=== PATIENT | female | born 1940 | race Caucasian/White ===

== ENCOUNTER → 2019-07-07 | Outpatient (CLI) | payer MEDICARE ==
[~2019-07-07] MED LIST: HYDROmorphone 2 MG/ML VIAL IV PRN; IV RINGERS,LACTATED 1000ML 1,000 ML IV SCH; KETAMINE HCL IN NACL, ISO-OSM 50 MG/5 ML SYRINGE ONE; MIDAZOLAM HCL/PF 2 MG/2 ML VIAL. ONE; MORPHINE SULFATE 2 MG/ML VIAL. IV PRN; ONDANSETRON PF 4 MG/2 ML VIAL. IV PRN; PROCHLORPERAZINE 10 MG/2 ML VIAL. IV PRN; PROPOFOL 20 ML IV ONE; fentaNYL PF VIAL 100 MCG/2 ML VIAL IV PRN
[2019-07-07 14:21] VITALS: BP 170/77
--- NOTE | 2019-07-07 14:33 | RAD ---
EXAMINATION: Magnetic resonance imaging (MRI) of the cervical spine without contrast 07/07/2019 1:00 PM HISTORY: Cervical radiculopathy TECHNIQUE: Multiplanar multi-weighted MRI of the cervical spine was performed without intravenous contrast using the standard cervical spine protocol. Contrast information: None administered COMPARISON: None available FINDINGS: Evaluation degraded by motion artifact. Minimal anterolisthesis of C2 on C3. Minimal anterolisthesis of C3 on C4. Minimal retrolisthesis of C5 on C6. There is moderate disc height loss at C4-C5 with endplate irregularity and marginal osteophytosis compatible with degenerative disc changes. No acute fracture is identified; however, if trauma is suspected, a CT scan would be a more sensitive examination for fractures. The craniocervical junction is normal. The visualized portions of the skull base and the posterior fossa are normal. Evaluation of cervical spinal cord is limited by motion. No soft tissue abnormality is identified. Normal signal voids are present in the vertebral arteries. Motion artifact may accentuate the degree of stenosis. C2-C3: Disc is normal in configuration. There is mild facet arthropathy. No neuroforaminal or spinal canal stenosis. C3-C4: There is a posterior disc osteophyte complex. Mild facet and uncovertebral joint disease. Mild bilateral neuroforaminal stenosis. No significant spinal canal stenosis. C4-C5: There is a posterior disc osteophyte complex. Moderate facet and uncovertebral joint disease. Moderate to severe left and moderate right uncovertebral joint disease. Moderate spinal canal stenosis, exacerbated by ligamentum flavum infolding. There is subtle deformity of the ventral cord. No cord signal alteration. C5-C6: There is a posterior disc osteophyte complex with left foraminal disc protrusion. Mild facet and moderate uncovertebral joint disease, left greater than right. Mild to moderate bilateral neuroforaminal stenosis. Mild spinal canal stenosis without deformity of the cord or cord signal alteration. C6-C7: Mild disc bulge. No neuroforaminal or spinal canal stenosis. C7-T1: Disc is normal in configuration. No neuroforaminal or spinal canal stenosis. IMPRESSION: Moderate degenerative changes of the cervical spine are present, as described in detail above. Findings are limited secondary to motion artifact. Electronically signed by: Sury Das MD (07/07/2019 2:30 PM) [id number]
== END | disposition home or self-care (01) ==
LOC: SURG 12:03
PROVIDERS: ATTEND Neurological Surgery
DX: M47.22 Other spondylosis with radiculopathy, cervical region (principal); M50.121 Cervical disc disorder at C4-C5 level with radiculopathy; M50.122 Cervical disc disorder at C5-C6 level with radiculopathy; M25.78 Osteophyte, vertebrae
CPT/HCPCS: 72141; 82962; J2250; J2704

== ENCOUNTER → 2020-12-27 | Outpatient (CLI) | payer MEDICARE, BC ==
[~2020-12-27] MED LIST changes: -HYDROmorphone 2 MG/ML VIAL IV PRN; +HYDROmorphone 2 MG/ML VIAL IVP PRN; +LIDOCAINE 2% PF 5 ML VIAL. ONE; +MORPHINE SULFATE 2 MG/ML INJ. IVP PRN; -MORPHINE SULFATE 2 MG/ML VIAL. IV PRN; -ONDANSETRON PF 4 MG/2 ML VIAL. IV PRN; -PROCHLORPERAZINE 10 MG/2 ML VIAL. IV PRN; +PROCHLORPERAZINE 10 MG/2 ML VIAL. IVP PRN; +PROPOFOL 10 MG/ML (20ML) VIAL. IV ONE; -PROPOFOL 20 ML IV ONE; -fentaNYL PF VIAL 100 MCG/2 ML VIAL IV PRN; +fentaNYL PF VIAL 100 MCG/2 ML VIAL IVP PRN; +fentaNYL PF VIAL 100 MCG/2 ML VIAL ONE
[2020-12-27 09:22] VITALS: BP 185/66
--- NOTE | 2020-12-27 09:39 | RAD ---
EXAM: Cervical spine MRI without contrast. HISTORY: Cervical radiculopathy. TECHNIQUE: Multiplanar, multisequence magnetic resonance imaging of the cervical spine was performed without contrast. COMPARISON: 07/07/2019 FINDINGS: The exam is limited due to patient motion. There is 3 mm anterolisthesis of C3 on C4, 4 mm anterolisthesis of C4 on C5, 3 mm retrolisthesis of C5 on C6 and 2 mm anterolisthesis of C6 on C7. Th ere is degenerative endplate remodeling with disc space narrowing, osteophytosis and Schmorl's node f ormation primarily at C4-C5. There is a mild chronic superior endplate depression with Schmorl's node at T2. There is no acute or subacute fracture. There is no suspicious osseous lesion. At C2-C3, there is severe right and moderate left facet arthropathy. There is mild right foraminal st enosis. At C3-C4, there is a disc bulge and endplate osteophytosis. There is severe right and moderate left f acet arthropathy. There is mild right foraminal stenosis. At C4-C5, there is a disc bulge and endplate osteophytosis. There is severe bilateral facet arthropat hy. There is uncovertebral arthropathy. There is buckling of the ligamentum flavum. There is mild julissa tral canal stenosis measuring 8.8 mm in anterior posterior dimension. At C5-C6, there is a disc bulge and endplate remodeling. There is mild bilateral facet arthropathy. T here is bilateral uncovertebral arthropathy. There is moderate bilateral foraminal stenosis. At C6-C7, there is a disc bulge and endplate remodeling. There is moderate bilateral facet arthropath y. There is no stenosis. IMPRESSION: 1. Limited exam due to motion. 2. Multilevel degenerative change involving the cervical spine, described in detail above. This resul ts in mild right foraminal stenosis at C2-C3 and C3-C4, mild central canal stenosis at C4-C5 and mode rate bilateral foraminal stenosis at C5-C6. These findings are similar compared to the prior exam, al lowing for differences in technique and limitations due to motion artifact. Electronically signed by: Nan Pulido MD (12/27/2020 9:36 AM) [id number]
== END ==
LOC: MRI 10:05
PROVIDERS: ATTEND Neurological Surgery
DX: M47.22 Other spondylosis with radiculopathy, cervical region (principal); M48.02 Spinal stenosis, cervical region; M48.8X2 Other specified spondylopathies, cervical region; M43.12 Spondylolisthesis, cervical region; M50.11 Cervical disc disorder with radiculopathy, high cervical region; M25.78 Osteophyte, vertebrae; M51.44 Schmorl's nodes, thoracic region
CPT/HCPCS: 72141; J2250; J2704; J3010

== ENCOUNTER → 2021-01-28 | Outpatient (CLI) | payer MEDICARE, BC ==
[2020-12-27 09:22] VITALS: BP 185/66
[~2021-01-28] MED LIST changes: +ACET500T68 PO; +ALBU2.5V8 INH; +ASPI-630 PO; +ATOR40TA59 PO; +FURO20TA3 PO; -HYDROmorphone 2 MG/ML VIAL IVP PRN; +INSU100V6 SQ; +IOHEXOL 180 MG/ML 10 ML VIAL. ONE; -IV RINGERS,LACTATED 1000ML 1,000 ML IV SCH; -KETAMINE HCL IN NACL, ISO-OSM 50 MG/5 ML SYRINGE ONE; -LIDOCAINE 2% PF 5 ML VIAL. ONE; +LOSA100T14 PO; +METF10007 PO; +METO-239 PO; -MIDAZOLAM HCL/PF 2 MG/2 ML VIAL. ONE; -MORPHINE SULFATE 2 MG/ML INJ. IVP PRN; +NAPR500T8 PO; +POLY17PO29 PO; +POTA-121 PO; -PROCHLORPERAZINE 10 MG/2 ML VIAL. IVP PRN; -PROPOFOL 10 MG/ML (20ML) VIAL. IV ONE; +ZAFI20TA12 PO; -fentaNYL PF VIAL 100 MCG/2 ML VIAL IVP PRN; -fentaNYL PF VIAL 100 MCG/2 ML VIAL ONE; +methylPREDNISolone ACETATE 40 MG/ML VIAL. ONE; +methylPREDNISolone ACETATE 80 MG/ML VIAL. ONE; +nasocort NAS
--- NOTE | 2021-01-28 12:51 | PDOC1 ---
INITIAL PAIN CONSULT DATE OF SERVICE: DOS: DATE: 01/28/21 TIME: 12:42 CHIEF COMPLAINT: Chief Complaint: Neck and left upper extremity pain HISTORY OF PRESENT ILLNESS: 80-year-old female presents with history of pain base the neck and left upper extremity for about 8 months now not the result of any specific injury or accident that she is aware of is getting worse with time and with activities. Difficult to lift items with repetitive motions reaching out to the side forward is becoming much more painful also difficulty sleeping especially she tries to sleep on her left side. Patient reports wakes her from sleep at least 2-3 times a night does not affect her bowel bladder control does affect her ability to walk and ambulate to get around as she is using an electric scooter and is hard for her to use her left arm to get in and out of the scooter. Patient has had physical therapy in the past is doing stretching strength exercise associated with this which is helpful but not decreasing the pain significantly patient is taking hydrocodone which does decrease the pain about 50%. Patient reports she takes this also to help her sleep. Patient reports pain is sharp and throbbing in the base the neck and left upper extremity to the hand and the thumb and the first and second fingers with some numbness and tingling as well. Patient rates her disability rating 0-10 10 being the worst is an 8 family home responsibilities recreation and sexual behavior and life support activities 9 with social activity and 7 with self-care activities. Patient did have an MRI scan of the cervical spine showing mild right foraminal stenosis C2-3 and C3-4 with mild central canal stenosis C4-5 moderate bilateral foraminal stenosis C5- C6. PAST MEDICAL HISTORY: PMH: Hypertension, shortness of breath, type 2 diabetes, bladder cancer, dizziness, arthritis, eczema, cardiac disease, gastroesophageal reflux PREVIOUS SURGERIES: Past Surgical Hx: Cervical decompression 2012, cord artery bypass grafting, right hip replacement, left hip replacement, abdominal hernia repair, right hip repair, total right shoulder replacement, thoracic spine tumor excision, left total shoulder replacement, x2, cholecystectomy CURRENT MEDICATIONS: Current Meds: Active Scripts Medications Dose Route/Sig Max Daily Dose Days Date Category No Active Prescriptions or Reported Medications Rx ALLERGIES; Allergies: Coded Allergies: adhesive (Verified Allergy, Intermediate, Rash, 08/05/13) celecoxib (Verified Allergy, Intermediate, Rash, 08/05/13) ECZEMA rofecoxib (Verified Allergy, Intermediate, Rash, 08/05/13) ECZEMA FAMILY HISTORY: Family Hx: Cancer, heart disease SOCIAL HISTORY: Social Hx: Patient drinks alcohol about 2 drinks a month does not smoke not use any illegal illicit or recreational drugs is with her spouse is currently retired lives in [facility] REVIEW OF SYSTEMS: ROS: Positive for those items mentioned in history of present illness, all systems are reviewed, otherwise negative ,and are complete full and well-documented on patient's chart. PHYSICAL EXAM: VS: Blood pressure is 138/77 pulse 86 respirations 20 temperature 97.5 F height is 5 foot weight is 230 pounds. PE: PHYSICAL EXAMINATION: GENERAL: The patient is awake, alert, oriented, appropriate, very pleasant in demeanor, patient accompanied by her spouse. HEENT: Shows normocephalic, atraumatic. Extraocular movements are intact and symmetrical. Oral cavity: Mucous membranes moist and pink. NECK: Shows anterior throat supple without palpable lymphadenopathy noted. Swallow reflex symmetrical. CHEST: Shows normal on inspection. Breath sounds are clear bilaterally, distant but no rales or rhonchi or wheezes auscultated. HEART: Shows S1, S2 clear. No murmurs auscultated. ABDOMEN: Soft, nontender, nondistended, obese. No palpable organomegaly is noted. No rebound or guarding demonstrated. BACK: Shows spine grossly in the midline. Normal-appearing cervical lordotic curvature. Cervical paraspinous muscles show symmetrical with inspection, palpation some moderate tenderness diffusely in the middle and inferior aspect cervical paraspinous posture more on the left than the right also in the superior medial trapezius on the left but without trigger points difficult review without asymmetry. Patient is good rotation motion cervical spine both laterally as well as full extension full forward flexion without significant difficulty. There is slightly increased thoracic kyphosis, some minor flattening of the lumbar lordotic curvature. Lumbar paraspinous muscles show symmetrical on inspection, on palpation shows some moderate tenderness diffusely throughout the upper, middle and lower distribution of the paraspinous muscles bilaterally and also into the lower thoracic paraspinous musculature, firm and tender, but without specific trigger points, without radiation of pain. The patient has good rotational motion of the lumbar spine, both laterally as well as extension and flexion without significant difficulty. No tenderness over the spinous processes, sacrum or sacroiliac regions. EXTREMITIES: Upper extremities show deep tendon reflexes 1+ biceps and triceps tendons. 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 Peripheral pulses are 1+ radial. No peripheral edema is noted bilaterally. Upper extremities are warm and dry to touch, equal in color and appearance. SKIN: Shows warm and dry, good turgor. No edema. No sores, rashes or bruising throughout. IMPRESSION: Impression: 80-year-old female with 8-month history increasing pain base of the neck left upper extremity in a radicular fashion. MRI scan cervical spine as noted Arthritis Hypertension Type 2 diabetes History of bladder cancer Plan: Options were discussed with the patient could exert medical management continued physical therapies and interventional techniques. Patient elects interventional techniques. We discussed a cervical epidural steroid injections description as well as anatomical models to describe the procedure. Risks were discussed including but not limited to: Bleeding, infection, possibility of epidural hematoma and subsequent neurological compromise, dural puncture, headaches, spinal cord and/or nerve damage, side effects of steroid medication, and poor results regarding pain control. Patient understands and wished to proceed. Patient return to clinic in approximate 2 weeks for follow-up, was counseled return appointment, activity level, and side effect to be aware of. Procedure cervical epidural steroid injection at the C6-7 level, using local anesthetic under sterile prep and drape using C-arm fluoroscopic guidance under local anesthesia medications injected ;120 mg Depo-Medrol +5 mL normal saline and 2 mL contrast; condition at discharge is stable patient tolerated procedure well. and had no complications MARYAN MOORE MD Jan 28, 2021 12:51
--- NOTE | 2021-01-28 12:52 | PDOC4 ---
Procedure Note: ICD 10 Code: ICD 10 Code: M54.12 M4 8.02 M50.30 Procedure Note: Patient was consented for cervical epidural steroid injection with fluoroscopic guidance. Risks were discussed including but not limited to: Bleeding, infection, possibility of epidural hematoma and subsequent neurological compromise, dural puncture, headaches, spinal cord and/or nerve damage, side effects of steroid medication, and poor results regarding pain control. Patient understands and wished to proceed. Procedure cervical epidural steroid injection at the C6-7 level, using local anesthetic under sterile prep and drape using C-arm fluoroscopic guidance under local anesthesia medications injected ;120 mg Depo-Medrol +5 mL normal saline and 2 mL contrast; condition at discharge is stable patient tolerated procedure well. and had no complications MARYAN MOORE MD Jan 28, 2021 12:52
== END | disposition home or self-care (01) ==
LOC: PNCL 11:10
PROVIDERS: ATTEND Anesthesiology
DX: M50.10 Cervical disc disorder with radiculopathy, unspecified cervical region (principal); M48.02 Spinal stenosis, cervical region; I25.10 Atherosclerotic heart disease of native coronary artery without angina pectoris; I10 Essential (primary) hypertension; E78.00 Pure hypercholesterolemia, unspecified; E11.9 Type 2 diabetes mellitus without complications; M19.90 Unspecified osteoarthritis, unspecified site; K21.9 Gastro-esophageal reflux disease without esophagitis; Z90.49 Acquired absence of other specified parts of digestive tract; Z98.890 Other specified postprocedural states; Z79.82 Long term (current) use of aspirin; Z79.84 Long term (current) use of oral hypoglycemic drugs; Z79.899 Other long term (current) drug therapy; Z87.891 Personal history of nicotine dependence; Z72.89 Other problems related to lifestyle; Z88.8 Allergy status to other drugs, medicaments and biological substances
CPT/HCPCS: 62321; 99205; J1030; J1040; Q9965; G0463

== ENCOUNTER → 2021-02-11 | Outpatient (CLI) | payer MEDICARE, BC ==
[2020-12-27 09:22] VITALS: BP 185/66
[~2021-02-11] MED LIST changes: -IOHEXOL 180 MG/ML 10 ML VIAL. ONE; -methylPREDNISolone ACETATE 40 MG/ML VIAL. ONE; -methylPREDNISolone ACETATE 80 MG/ML VIAL. ONE
--- NOTE | 2021-02-11 13:49 | PDOC ---
Progress Note - Pain Clinic Date of Service: DOS: DATE: 02/11/21 TIME: 13:45 Diagnosis: Dx: Cervical radiculopathy with cervical degenerative disease and cervical spinal stenosis History or Present Illness: HPI: 80-year-old female returns for follow-up status post cervical epidural steroid action x1. Patient reports about 30% improvement overall doing much better in the base the neck and shoulder specially still some pain in the arm in the armpit itself on the left side but otherwise doing much better increase activity with greater ease and comfort using her left upper extremities more repetitive motions weightbearing and feels stronger as well patient reports pain is 6 on scale 10 is worse over the past week for an average and for its least and is a 4 today. Patient ports is aching and stabbing on and off in intensity but without as much radiation of the upper extremity and certainly much better in the base of the neck and shoulder. Patient reports he is sleeping better at night decreased activity with greater comfort. Patient reports no new deficits. Physical Exam: VS: Blood pressure is 149/63 pulse 66 respiration 20 temperature 90.3 F height is 5 foot weight is 226 pounds PE: PHYSICAL EXAMINATION: GENERAL: The patient is awake, alert, oriented, appropriate, very pleasant in demeanor HEENT: Shows normocephalic, atraumatic. Extraocular movements are intact and symmetrical. Oral cavity: Mucous membranes moist and pink. NECK: Shows anterior throat supple without palpable lymphadenopathy noted. Swallow reflex symmetrical. CHEST: Shows normal on inspection. Breath sounds are clear bilaterally, distant but no rales rhonchi or wheeze auscultated. HEART: Shows S1, S2 clear. No murmurs auscultated. ABDOMEN: Soft, nontender, nondistended, obese. No palpable organomegaly is noted. BACK: Shows spine grossly in the midline. Normal-appearing cervical lordotic curvature. Cervical paraspinous muscles show symmetrical inspection, palpation some moderate tenderness diffusely in the inferior aspect the cervical paraspinous muscular more on the left than the right but without trigger points without active radiation atrophy or hypertrophy. Patient has full rotation motion cervical spine both laterally feels full extension full forward flexion without significant difficulty. There is slightly increased thoracic kyphosis, some minor flattening of the lumbar lordotic curvature. EXTREMITIES: Upper extremities show deep tendon reflexes 1+ in the biceps and triceps tendons. 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 Peripheral pulses are 2+ radial. No peripheral edema is noted bilaterally. Upper extremities are warm and dry to touch, equal in color and appearance. SKIN: Shows warm and dry, good turgor. No edema. No sores, rashes or bruising throughout. Procedure: Procedure: Options were discussed with the patient. Patient's old chart was reviewed as her current medication regimen updated current review of systems updated today as well. We will hold on further injections at this time as patient doing a fair amount better would like to wait on any further injections at this time. Patient will continue to increase activity as tolerated and follow-up at this time on as-needed basis. Medication Injected: Med Injected: None Condition at Discharge: Condition at Discharge: Condition at discharge is stable. MARYAN MOORE MD Feb 11, 2021 13:49
== END | disposition home or self-care (01) ==
LOC: PNCL 13:06
PROVIDERS: ATTEND Anesthesiology
DX: M50.10 Cervical disc disorder with radiculopathy, unspecified cervical region (principal); M48.02 Spinal stenosis, cervical region; I25.10 Atherosclerotic heart disease of native coronary artery without angina pectoris; I10 Essential (primary) hypertension; E78.00 Pure hypercholesterolemia, unspecified; K21.9 Gastro-esophageal reflux disease without esophagitis; M19.90 Unspecified osteoarthritis, unspecified site; E11.9 Type 2 diabetes mellitus without complications; Z87.891 Personal history of nicotine dependence; Z79.82 Long term (current) use of aspirin; Z79.84 Long term (current) use of oral hypoglycemic drugs; Z79.899 Other long term (current) drug therapy; Z90.49 Acquired absence of other specified parts of digestive tract; Z98.890 Other specified postprocedural states; Z72.89 Other problems related to lifestyle; Z88.8 Allergy status to other drugs, medicaments and biological substances
CPT/HCPCS: 99212; G0463

== ENCOUNTER → 2021-05-31 | Outpatient (CLI) | payer MEDICARE, BC ==
[2020-12-27 09:22] VITALS: BP 185/66
[~2021-05-31] MED LIST changes: +IOHEXOL 180 MG/ML 10 ML VIAL. ONE; +methylPREDNISolone ACETATE 80 MG/ML VIAL. ONE
--- NOTE | 2021-05-31 11:42 | PDOC ---
Progress Note - Pain Clinic Date of Service: DOS: DATE: 05/31/21 TIME: 11:35 Diagnosis: Dx: Cervical radiculopathy with cervical degenerative disease and cervical spinal stenosis Diabetes type 2, insulin-dependent History or Present Illness: HPI: 81-year-old female returns for follow-up last seen Tober 2020 patient had cervical epidural steroid injection prior to that and was doing very well with near 100% improvement patient reports the pain is beginning to return in the base the neck and now is in the left shoulder and arm radiating the left upper extremity into the forearm and the hand and with more tingling and numbness in the hand that she has had before patient reports its not to the point where she is losing strength but has difficulty with fine motor movements as well as holding onto things and she is been dropping items with the left hand which is new for her patient reports is a 7 on scale 10 is worse over the past week 5-6 on average and a 4-5 at its least is a 5 today patient ports aching sharp radiating left upper extremity sometimes severe on and off in intensity worse with repetitive motions lifting items reaching overhead with her left arm as well as reaching forward with weightbearing. Patient reports that it wakes her from sleep at least once or twice a night especially if she lays on her left side patient reports prior to that though she was doing much better with doing household activities try with greater ease and comfort and sleeping better. Patient reports her blood sugar was elevated to over 200 after the last injection we discussed in detail with her today as she has a new [employer] available as well as Metformin as she is type II diabetic but now insulin- dependent. She does have a sliding scale and we will have her utilize this after the injection today if the blood sugar deems necessary and will check this at least 3 times daily for the first week. Patient understands and agrees. Physical Exam: VS: Blood pressure is 136/76 pulse 70 respirations are 20 temperature 97.6 F height is 5 foot weight is 229 pounds. PE: PHYSICAL EXAMINATION: GENERAL: The patient is awake, alert, oriented, appropriate, very pleasant in demeanor HEENT: Shows normocephalic, atraumatic. Extraocular movements are intact and symmetrical. Patient wearing nasal cannula oxygen. Oral cavity: Mucous membranes moist and pink. NECK: Shows anterior throat supple without palpable lymphadenopathy noted. Swallow reflex symmetrical. CHEST: Shows normal on inspection. Breath sounds are clear bilaterally, distant but no rales rhonchi or wheezes auscultated. HEART: Shows S1, S2 clear. No murmurs auscultated. ABDOMEN: Soft, nontender, nondistended. No palpable organomegaly is noted. No rebound or guarding demonstrated. BACK: Shows spine grossly in the midline. Normal-appearing cervical lordotic curvature. Cervical paraspinous muscles show symmetrical on inspection, with palpation shows some moderate tenderness diffusely throughout the upper middle lower decrease the paraspinous muscle slightly more on the left than the right but without specific trigger points or atrophy or hypertrophy. Patient shows good rotation motion cervical spine both laterally slightly guarded with extension and flexion but without significant radiation reported. There is moderately increased thoracic kyphosis, some flattening of the lumbar lordotic curvature. EXTREMITIES: Upper extremities show deep tendon reflexes 1 in the patellar and tendo calcaneus tendons. Motor exam is 5 on a scale of 5 with right dorsiflexion, extension, quadriceps and hamstring flexion and []/5 on the left. Peripheral pulses are 1+ posterior tibial. No peripheral edema is noted bilaterally. Upper extremities are warm and dry to touch, equal in color and appearance. Shoulder shrug is strong and intact without loss of strength on resistance. SKIN: Shows warm and dry, good turgor. No edema. No sores, rashes or bruising throughout. Procedure: Procedure: Options were discussed with the patient. Patient's old chart was reviewed as her current medication regimen updated current review of systems updated today as well. We will proceed with a cervical epidural steroid injection today with fluoroscopic guidance. Risks were discussed including but not limited to: Bleeding, infection, possibility of epidural hematoma and subsequent neurological compromise, dural puncture, headaches, spinal cord and/or nerve damage, side effects of steroid medication, and poor results regarding pain control. Patient understands and wished to proceed. Patient will return to the clinic in approximate 2 weeks for follow-up, was counseled as to return appointment, activity level, and side effect to be aware of especially blood sugar elevation and we discussed again use of her sliding scale and she understands and will follow-up as scheduled. Medication Injected: Med Injected: Procedure cervical epidural steroid injection at the C6-7 level, using local anesthetic under sterile prep and drape using C-arm fluoroscopic guidance under local anesthesia medications injected ;120 mg Depo-Medrol +5 mL normal saline and 2 mL contrast; condition at discharge is stable patient tolerated procedure well. and had no complications Condition at Discharge: Condition at Discharge: Condition at discharge stable, patient tolerated the procedure well and had no complications. MARYAN MOORE MD May 31, 2021 11:42
--- NOTE | 2021-05-31 11:43 | PDOC4 ---
Procedure Note: ICD 10 Code: ICD 10 Code: M54.12 M50.30 M4 8.02 Procedure Note: Patient was consented for cervical epidural steroid injection with fluoroscopic guidance. Risks were discussed including but not limited to: Bleeding, infection, possibility of epidural hematoma and subsequent neurological compromise, dural puncture, headaches, spinal cord and/or nerve damage, side effects of steroid medication, and poor results regarding pain control. Patient understands and wished to proceed. Procedure cervical epidural steroid injection at the C6-7 level, using local anesthetic under sterile prep and drape using C-arm fluoroscopic guidance under local anesthesia medications injected ;120 mg Depo-Medrol +5 mL normal saline and 2 mL contrast; condition at discharge is stable patient tolerated procedure well. and had no complications MARYAN MOORE MD May 31, 2021 11:43
== END | disposition home or self-care (01) ==
LOC: PNCL 10:54
PROVIDERS: ATTEND Anesthesiology
DX: M50.10 Cervical disc disorder with radiculopathy, unspecified cervical region (principal); M48.02 Spinal stenosis, cervical region; E11.9 Type 2 diabetes mellitus without complications; M54.12 Radiculopathy, cervical region; I25.10 Atherosclerotic heart disease of native coronary artery without angina pectoris; I10 Essential (primary) hypertension; E78.00 Pure hypercholesterolemia, unspecified; K21.9 Gastro-esophageal reflux disease without esophagitis; M19.90 Unspecified osteoarthritis, unspecified site; Z79.82 Long term (current) use of aspirin; Z79.84 Long term (current) use of oral hypoglycemic drugs; Z79.899 Other long term (current) drug therapy; Z90.49 Acquired absence of other specified parts of digestive tract; Z98.890 Other specified postprocedural states; Z88.8 Allergy status to other drugs, medicaments and biological substances
CPT/HCPCS: 62321; J1040; Q9965